=== PATIENT | female | born 1950 ===

== ENCOUNTER → 2020-08-02 16:19 | Outpatient (REF) | payer MEDICARE, SELFPAY | LOC: ANHLAB 16:19 | PROVIDERS: PCP Family Medicine; Visit Provider Nurse Practitioner | DX: D49.2 Neoplasm of unspecified behavior of bone, soft tissue, and skin (principal) | CPT/HCPCS: 88305 ==

== ENCOUNTER → 2021-01-28 16:36 | Outpatient (REF) | payer MEDICARE, SELFPAY | LOC: ANHLAB 16:36 | PROVIDERS: PCP Family Medicine; Visit Provider Nurse Practitioner | DX: L90.5 Scar conditions and fibrosis of skin (principal) | CPT/HCPCS: 88305 ==